=== PATIENT | female | born 1930 | race Caucasian/White ===

== ENCOUNTER 2020-08-11 11:01 | Day surgery (SDC) | payer MEDICARE, OTHER ==
[~2020-08-11] VITALS: Ht 160 cm; Wt 70.0 kg
[~2020-08-11 11:01] MED LIST: AMLODIPINE BESYL5 MG PO; ASPIRIN EC325 MG PO; ASPIRIN325 MG PO; ATENOLOL-CHLOR1 EACH PO; BENADRYL25 MG PO; CIPROFLOXACIN250 MG PO; CLARITIN10 M2 PO; FERROUS SULFAT325 MG PO; FLOMAX0.4 MG PO; GABAPENTIN100 MG PO; HYDROXYZINE HCL25 MG PO; K-TAB ER20 MEQ PO; LEVOFLOXACIN500 MG PO; LEVOTHYROXINE75 MC1 PO; LEVOTHYROXINE75 MCG PO; MACROBID 100 M100 MG PO; MELATONIN5 M2; MIRTAZAPINE15 MG PO; MULTI VITAMIN1 EACH PO; NITROFURANTOIN100 M1 PO; NORCO 5-325 TA1 EACH PO; NORVASC10 MG PO; PAROXETINE HCL40 MG PO; POTASSIUM CHLO20 ME1 PO; PRENATAL MULTI1 EAC3 PO; PROBIOTIC1 EAC1 PO; PYRIDIUM200 MG PO; SPIRONOLACTONE25 MG PO; TRAZODONE HCL50 MG PO; TYLENOL EXTRA500 MG PO
--- NOTE | 2020-08-11 12:46 | NUR ---
08/11/20 1246 Elsy Wiggins 1235 PT ARRIVED TO PACU ON RA AND RESP EVEN AND UNLABORED. PT WAKES TO TACTILE STIMULI AND IS REORIENTED TO PACU. PT DENIES PAIN. 1240 PT ROLLS TO BACK AND CONTINUES TO DENY PAIN. PT RESTING WITH EYES CLOSED AND PLAN OF CARE DISCUSSED. VSS.
--- NOTE | 2020-08-24 10:14 | PATH ---
[facility] [address], [place] [address] Signed THIS IS AN ADDENDUM REPORT SPECIMEN(S): A BONE MARROW - CORE SPECIMEN(S): B BONE MARROW - ASPIRATION SPECIMEN(S): C COMPREHENSIVE FLOW CYTOMETRY ONLY, BM EDTA ASP CLINICAL HISTORY: Bone marrow biopsy. 89-year-old female with splenomegaly, thrombocytosis, leukocytosis, evaluate MPN. See attached. D47.1 (chronic myeloproliferative disease) DIAGNOSIS SUMMARY: A. Peripheral blood - Marked thrombocytosis. - Negative for blasts. B. Bone marrow, aspirate smear, aspirate cell block and core biopsy: - Hypercellular bone marrow for age (70-80%) with megakaryocytic hyperplasia. - Marked increase in bone marrow reticulin fibrosis (grade 3). - Negative for morphologic features of myelodysplastic syndrome (MDS). - Negative for bone marrow metastatic disease or infiltrative process. - See diagnostic comment. DIAGNOSTIC COMMENT: The bone marrow is hypercellular with megakaryocytic hyperplasia and increased in bone marrow reticulin fibrosis. 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 Correlation with pending cytogenetic studies, FISH for BCR-ABL and LV-2 rearrangement study would be helpful for further classifications of this disorder. This case has been reviewed and dictated by Jackelyn Feliz M.D.FACP, board certified hematopathologist. NA:vlg:C1NR PERIPHERAL BLOOD: HEMOGRAM ([facility], [place], [place]; 08/11/2020): WBCs 9.8 K/uL, RBCs 5.23 K/uL, HGB 15.8 g/dL, HCT 47.0%, MCV 89.9 f/L, RDW 17.7%, MCHC 34 g/dL, PLT 867 K/uL. DIFFERENTIAL (manual): 69% neutrophils, 21% lymphocytes, 4% monocytes, 5% eosinophils, and 1% basophils. Review of peripheral blood smear and CBC data demonstrate that the RBCs are PATIENT NAME: LAKHWINDER FLOWERS PATHOLOGY DATE OF : [birth year] REPORT #: [id number] PHYSICIAN: GABRIELA GARRIDO PCP: LEXIE NEWSOME MD REPORT IS CONFIDENTIAL AND NOT TO BE RELEASED WITHOUT AUTHORIZATION [facility] [address], [place] [address] Signed slightly increased in number with no anemia present. No Rouleaux formation is identified. No nucleated RBCs are encountered. The WBCs are normal in number and distribution. The neutrophils show unremarkable morphology. No immature cells/blasts are seen. The monocytes show reactive morphology. The lymphocytes are normal in number and unremarkable in morphology. No disintegrated (smudge) cells are encountered. The platelets are markedly increased in number (867 K/uL) with occasional giant platelets encountered. BONE MARROW: BONE MARROW ASPIRATES SMEARS: The bone marrow aspirate smears are aparticulate and acellular and inadequate for morphologic evaluation. Rare scattered hematopoietic cells are seen. There are no touch imprints. BONE MARROW CORE BIOPSY AND CLOT SECTION: The bone marrow core biopsy demonstrates markedly hypercellular bone marrow for age with an averaging cellularity of 70-80%. Trilineage hematopoiesis is present with progressive maturation. There are no lymphoid aggregates, granulomas, or metastatic tumor cells present. An increased number of megakaryocytes is seen. Most of them are very large and multinucleated, occasionally forming small aggregates. SPECIAL STUDIES are performed (with appropriately reactive control) and show the following results: - Iron stain (aspirate smear): Absent. (No bone marrow particles present). - Iron stain (clot section, block B): Absent. - Reticulin stain (block A, core biopsy): Marked increase in bone marrow reticulin fibrosis (grade 3/3). IMMUNOHISTOCHEMICAL STAINS, BLOCK A1, are performed (with appropriately reactive control) and show the following results: - CD34: Highlights scattered positive cells with no increase in blasts noted. - CD117: Highlights scattered positive cells with no increase in blasts noted. - MPO: Highlights myeloid precursor with normal pattern of distribution. - CD71: Highlights erythroid precursors with normal pattern of distribution. - Factor VIII: Highlights and confirms an increased number of megakaryocytes. NA:vlg FLOW CYTOMETRY: Bone marrow aspirate, flow cytometry: No increase in blasts (0.6% myeloblasts). PATIENT NAME: LAKHWINDER FLOWERS PATHOLOGY DATE OF : [birth year] REPORT #: [id number] PHYSICIAN: GABRIELA PATHOLOGY PCP: LEXIE NEWSOME MD REPORT IS CONFIDENTIAL AND NOT TO BE RELEASED WITHOUT AUTHORIZATION [facility] [address], [place] [address] Signed Normal myeloid maturation. Monoclonal CD5-positive mature B-cell lymphocytosis. See Comment. COMMENT: A minute kappa-restricted monotypic B-cell population is detected comprising 0.1 % of total events with chronic lymphocytic leukemia/ CLL- like immunophenotype. However, the absolute number of monoclonal B-cells is below the 2016 WHO criteria (greater than or equal to 5 K/uL) for a primary diagnosis of (CLL/SLL) based on this study alone and findings may represent monoclonal B-cell lymphocytosis. Clinical correlation is recommended. While no hematopoietic abnormality is detected in this study, correlation with clinical, morphologic, and genetic findings is recommended for full interpretation and to assess for disease processes not fully examined by flow cytometry analysis FLOW CYTOMETRY ANALYSIS: FLOW DIFFERENTIAL (% Total CD45 vs. SSC gating): Myeloid 74%; Lymphoid 19%; Monocyte 2%; Dim CD45/Blast: 0.6%. Cell Count: 3.2 x 10*3/uL. POPULATION ANALYSIS: BLASTS: Analysis of the dim CD45 gate demonstrates 0.6% myeloblasts by CD34/CD117. LYMPHOID CELLS: The lymphocyte gate comprises 19% of total events and includes 89% T-cells with a CD4:CD8 ratio of 2.3:1. A T-cell subset is detected (10% of lymphocytes, 2% of total events) co-expressing CD3 and CD56 with dimmer expression of CD5. 4% of lymphocytes are B-cells. A minute kappa-restricted B-cell subset is detected (0.7% of lymphocytes, 0.1% of total events) expressing CD45 DIM-MOD, CD19 DIM-MOD, CD20 DIM, CD5 DIM-MOD and KAPPA DIM while negative for CD10, CD23, CD38 and FMC7. Due to the absence of CD23 expression, select additional antibodies are run to further characterize the Bcells. Expression of CD200 DIM-MOD is noted. The remainders are NK-cells. MYELOID CELLS: The myeloid population comprises 74% of the total events. No aberrant immunophenotypic expression is detected. Changes suggestive of hemodilution are observed. MONOCYTES: The monocyte population comprises 2% of the total events. Monocytes are not increased. No aberrant immunophenotypic expression is detected. PLASMA CELLS: A significant plasma cell population is not detected in the neg-dimCD45/CD38 screening gate. Initial Antibodies Used: KAPPA, LAMBDA, CD20, CD10, CD19, CD23, CD38, FMC7, CD16, CD56, CD8, CD5, CD2, CD4, CD7, CD3, CD14, CD33, CD13, HLADR, CD34, CD117, PATIENT NAME: LAKHWINDER FLOWERS PATHOLOGY DATE OF : [birth year] REPORT #: [id number] PHYSICIAN: GABRIELA GARRIDO PCP: LEXIE NEWSOME MD REPORT IS CONFIDENTIAL AND NOT TO BE RELEASED WITHOUT AUTHORIZATION [facility] [address], [place] [address] Signed CD15, CD45. Additional Antibodies (necessary for further classification of B lymphocytes): CD200. Total Antibodies Used: 25. JNB GROSS DESCRIPTION: Two specimens are received in two containers, labeled "JW." A. The specimen, labeled "JW, core," is received in formalin and consists of two cylindrical bone core fragments measuring 0.3 in diameter and ranging 0.7-1.9 in length. The specimen is entirely submitted in cassette (A1) following decalcification in Immunocal. B. The specimen, labeled "JW, clot," is received in formalin and consists of thickened clot material measuring 2.4 x 1.4 x 0.5 in aggregate. The specimen is filtered and entirely submitted in cassette (B1). Bone marrow inventory also includes: Two peripheral smears, one EDTA tube bone marrow, two heparin tubes. AT (under the direct supervision of a pathologist) The Gross Description was prepared using a voice recognition system. The report was reviewed for accuracy; however, sound-alike word errors, addition and/or deletions may occur. If there is any question about this report, please contact Client Services. ADDITIONAL NOTES: Immunohistochemical and/or in situ hybridization studies were performed on this case with the appropriate positive controls that react as expected. This test was developed and its performance characteristics determined by [email or web address]. It has not been cleared or approved by the U.S. Food and Drug Administration. The FDA has determined that such clearance or approval is not necessary. This test is used for clinical purposes. It should not be regarded as investigational or for research. [email or web address] is certified under the Clinical Laboratory Improvement Amendments of 1988 (CLIA) as qualified to perform high complexity clinical laboratory testing. Immunohistochemical and/or in situ hybridization studies were performed on this case with the appropriate positive controls that react as expected. This test was developed and its performance characteristics determined by [email or web address]. It has not been cleared or approved by the U.S. Food and Drug Administration. The FDA has determined that PATIENT NAME: LAKHWINDER FLOWERS PATHOLOGY DATE OF : [birth year] REPORT #: [id number] PHYSICIAN: GABRIELA PATHOLOGY PCP: LEXIE NEWSOME MD REPORT IS CONFIDENTIAL AND NOT TO BE RELEASED WITHOUT AUTHORIZATION [address] [address] Signed such clearance or approval is not necessary. This test is used for clinical purposes. It should not be regarded as investigational or for research. [email or web address] is certified under the Clinical Laboratory Improvement Amendments of 1988 (CLIA) as qualified to perform high complexity clinical laboratory testing. In this case, certain antibodies were performed by both immunohistochemistry and flow cytometry analysis because flow cytometry analysis did not fully explain all the light microscopic findings. Immunohistochemistry aided in the analysis. Both methods are deemed medically necessary in this case. PERFORMING LABORATORY: The technical component was performed by [email or web address], [address] [place] [address] (Water Treatment Plant Repairer: Ok Zhong D.O.; CLIA#: [id number]. Professional interpretation was performed by [email or web address], [facility], [address] [place] [address] (CLIA#: [id number]). The technical component was performed by [email or web address], [address] [address] (Water Treatment Plant Repairer: Ok Zhong D.O.; CLIA#: [id number]). [email or web address], [address] [place] [address] (CLIA#: [id number]) IMAGES: A: [id number] A: [id number] FINAL DIAGNOSIS PERFORMED BY: Jackelyn Feliz MD, [facility], Aug 12 2020 12:11PM SPECIMEN SOURCE: A. FISH Analysis, BCR/ABL FISH, BM EDTA CLINICAL HISTORY: Bone marrow biopsy. 89-year-old female with splenomegaly, thrombocytosis, leukocytosis, evaluate MPN. See attached. D47.1 (chronic myeloproliferative disease) FISH (fluorescence in situ hybridization) RESULT: Not Detected INTERPRETATION: BCR/ABL1 t(9;22) rearrangement: Not detected. Fluorescence in situ hybridization (FISH) analysis was performed using a tricolor, dual fusion BCR/ABL1 probe set used to detect the(9;22) translocation associated with CML and less commonly ALL or PATIENT NAME: LAKHWINDER FLOWERS PATHOLOGY DATE OF : [birth year] REPORT #: [id number] PHYSICIAN: GABRIELA PATHOLOGY PCP: LEXIE NEWSOME MD REPORT IS CONFIDENTIAL AND NOT TO BE RELEASED WITHOUT AUTHORIZATION [facility] [address], [place] [address] Signed AML. The tri color probe set also detects derivative chromosome 9 deletions. All probe signals were within the normal reference range. This represents a NORMAL result. This analysis is limited to abnormalities detectable by the specific probes includes in the study. FISH should be interpreted within the context of a full cytogenetic analysis and hematologic evaluation. ISCN: Probe Set Detail: BCR/ABL1/ASS1 t(9;22): nuc monica 9q34(ASS1, ABL1)x2,22q11.2(BCRx2)[200] References: [employer] of Genetics and Cytogenetics in Oncology and Hematology [email or web address] FISH Analysis Summary: Nuclei Scored: 200 Scoring Method: Manual; CPT Code 01235 Number of Probe units: 1 Multiplex Cells analyzed: Interphase Probe sets: Chrom 9: ABL1, Chrom 9: ASS1, Chrom 22: BCR ADDITIONAL NOTES: This test was developed and its performance characteristics determined by [email or web address] It has not been cleared or approved by the US Food and Drug Administration. The [employer] DNA probe vendor for this study was [employer]. PERFORMING LABORATORY: The technical component of the FISH testing was performed by [email or web address], [facility] [place] [address] (Water Treatment Plant Repairer: Ok Zhong D.O.; IA#: [id number]). FINAL DIAGNOSIS PERFORMED BY: Shelia Pak MD, Pathologist Aug 17 2020 12:13PM REASON FOR ADDENDUM: To add results of additional testing. To add results of additional testing. 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 This mutation is not detected in normal individuals. A small subset of patients with myeloproliferative neoplasms (MPN) that are negative for the JAK2 V617F mutation will harbor JAK2 mutations in exon 12. More rare mutations are detected in exons 13 and 14. JAK2 mutations can be used to differentiate reactive conditions from neoplastic process. Methodology: Total nucleic acid was extracted from patient's plasma or PB/BM cells. The primer pair was designed to encompass the JAK2 V617F point mutation located in chromosome 9p24. The PCR product was then purified and sequenced in both forward and reverse directions using high-sensitivity Trout sequencing which improves the lower detection limit to approximately 1% mutated DNA in a wild-type background. The resulting sequence was compared to GenBank Acc# [id number] sequence. Various factors including quantity and quality of nucleic acid, sample preparation and sample age can affect assay performance. References: 1. Dioni Tamayo, et al. A unique clonal JAK2 mutation leading to constitutive signalling causes polycythaemia vera. Nature. 2005; 434:1144-8. 2. Akshat Lucero et al. A ewgf-mm-uhydjdwo mutation of JAK2 in myeloproliferative disorders. N Engl J Med. 2005; 352:1779-90. 3. Dariusz MEJÍA, Charles E, Leida P, et al; MPD Research Consortium. Prospective identification of high-risk polycythemia vera patients based on JAK2(V617F) allele burden. Leukemia. 2007;21(9):1952-9. PMID: 07171059. Test/Panel: JAK2 V617F Mutation Analysis - Qualitative MolDX CPT/AMA CPT: 48365/78878 The Technical Component Processing and Analysis of this test was completed at [facility] [address] / [address] / [phone] / CLIA #[id number] / Water Treatment Plant Repairer(s): Dori Villatoro M.D. The Professional Component of this test was completed at [facility] [place], [address] [place], [place] / [address] / [phone] / CLIA #[id number] / Water Treatment Plant Repairer(s): Sammy Sanchez D.O. (Accession/CaseNo: [id number]) The performance characteristics of this test have been determined by [facility]. This test has not been approved by the FDA. The FDA has determined such clearance or approval is not PATIENT NAME: LAKHWINDER FLOWERS PATHOLOGY DATE OF : [birth year] REPORT #: [id number] PHYSICIAN: GABRIELA PATHOLOGY PCP: LEXIE NEWSOME MD REPORT IS CONFIDENTIAL AND NOT TO BE RELEASED WITHOUT AUTHORIZATION [facility] [address], [place] [address] Signed necessary. This laboratory is CLIA certified to perform high complexity clinical testing. Images that may be included within this report are billing customer service representative of the patient but not all testing in its entirety and should not be used to render a result. The CPT codes provided with our test descriptions are based on MolDX and AMA guidelines and are for informational purposes only. Correct CPT coding is the sole responsibility of the billing constitution party. Please direct any questions regarding coding to the payer being billed. To add results of additional testing. Bone marrow aspirate, chromosome analysis: Karyotype: QNS Interpretation: Quantity of specimen insufficient for cytogenetic studies. Test Detail: Metaphases Counted: N/A Metaphases Analyzed: N/A Metaphases Karyotyped: N/A Culture Type: N/A Banding Technique: N/A Banding Resolution: N/A The Technical Component Processing, Analysis and Professional Component of this test was completed at [facility] [place], [address] [place] [address], [place] / [address] / [phone] / CLIA #[id number] / Water Treatment Plant Repairer(s): Dori Villatoro M.D. (Accession/CaseNo: [id number]) The performance characteristics of this test have been determined by the performing laboratory. This test has not been approved by the FDA. The FDA has determined such clearance or approval is not necessary. This laboratory is CLIA certified to perform high complexity clinical testing. Images that may be included within this report are billing customer service representative of the patient but not all testing in its entirety and should not be used to render a result. The CPT codes provided with our test descriptions are based on AMA guidelines and are for informational purposes only. Correct CPT coding is the sole responsibility of the billing constitution party. Please direct any questions regarding coding to the payer being billed. Diagnostician: Shelia Pak MD PATIENT NAME: LAKHWINDER FLOWERS PATHOLOGY DATE OF : [birth year] REPORT #: [id number] PHYSICIAN: GABRIELA GARRIDO PCP: LEXIE NEWSOME MD REPORT IS CONFIDENTIAL AND NOT TO BE RELEASED WITHOUT AUTHORIZATION [facility] [address] [place] [address] Signed Pathologist Diagnostician: Luis Penny DO Pathologist Electronically Signed 08/24/2020 Copies: ~ PATIENT NAME: LAKHWINDER FLOWERS PATHOLOGY DATE OF : [birth year] REPORT #: [id number] PHYSICIAN: GABRIELA PATHOLOGY PCP: LEXIE NEWSOME MD REPORT IS CONFIDENTIAL AND NOT TO BE RELEASED WITHOUT AUTHORIZATION
== END 2020-08-11 13:25 | disposition home or self-care (01) ==
LOC: DS 11:01
PROVIDERS: ATTEND Specialist
PROC: 07DR3ZX Extraction of Iliac Bone Marrow, Percutaneous Approach, Diagnostic (ICD-10-PCS; principal; 2020-08-11 12:00)
DX: D47.1 Chronic myeloproliferative disease (principal); K21.9 Gastro-esophageal reflux disease without esophagitis; I11.0 Hypertensive heart disease with heart failure; I50.32 Chronic diastolic (congestive) heart failure; D50.9 Iron deficiency anemia, unspecified; E03.9 Hypothyroidism, unspecified; Z87.440 Personal history of urinary (tract) infections; Z87.891 Personal history of nicotine dependence; Z79.82 Long term (current) use of aspirin; Z88.1 Allergy status to other antibiotic agents
CPT/HCPCS: 85025; 88184; 88185; 88305; 88311; 88313; 88341; 88342; 88377; 99153; G0500; J2250; J3010; J7121